=== PATIENT | male | born 1990 | race African-American/Black ===

== ENCOUNTER 2018-09-16 19:49 | Emergency (ER) | payer OTHER ==
[2018-09-16 20:47] VITALS: BP 107/71
== END 2018-09-16 20:47 | disposition home or self-care (01) ==
LOC: ED 19:49
DX: T78.40XA Allergy, unspecified, initial encounter (principal); X58.XXXA Exposure to other specified factors, initial encounter
CPT/HCPCS: J7512; Q0163